=== PATIENT | male | born 1940 | race Caucasian/White ===

== ENCOUNTER 2018-09-26 14:00 | Emergency (ER) | payer MEDICARE, BC ==
--- NOTE | 2018-09-26 14:30 | ER Document Report ---
ED General - General Stated Complaint: POSSIBLE SYNCOPE Time Seen by Provider: 09/26/18 14:21 Primary Care Provider: CATIA MASON MD [Primary Care Provider] - Follow up as needed TRAVEL OUTSIDE OF THE [place] IN LAST 30 DAYS: No - HPI Patient complains to provider of: syncope Onset: Other - 78-year-old with hypertension as well as mild dementia that presents for evaluation of an episode today in which he stood up to go to the kitchen and became lightheaded and foggy then went to sit out of the chair he had a brief episode in which it seemed like he passed out according to his being lowered to the ground while in route after having called the ambulance it was noted that his blood pressure was around 70/40 systolic at which time he had an episode which he briefly did black out in the ambulance and then came back to all while being monitored without any obvious arrhythmias or other issues. Currently the patient denies any chest pain abdominal pain diarrhea constipation dysuria shortness of breath recent illnesses fevers or chills. His notes that he previously been a smoker and is not at this time has only been taking his normal medications which include lisinopril. - Related Data Allergies/Adverse Reactions: No Known Allergies Allergy (Unverified 10/06/15 15:25) Past Medical History - General Information source: Patient - Social History Smoking Status: Former Smoker Family History: Reviewed & Not Pertinent - Past Medical History Cardiac Medical History: Reports: Hx Hypercholesterolemia, Hx Hypertension Malignancy Medical History: Reports Hx Prostate Cancer Past Surgical History: Reports: Hx Abdominal Surgery - hernia repair Review of Systems - Review of Systems -: Yes All other systems reviewed and negative Physical Exam - Vital signs Vitals: BP 100/60 09/26/18 14:09 Interpretation: Normal - General General appearance: Appears well In distress: None - HEENT Head: Normocephalic, Atraumatic Eyes: Normal Pupils: PERRL - Respiratory Respiratory status: No respiratory distress Chest status: Nontender Breath sounds: Normal Chest palpation: Normal - Cardiovascular Rhythm: Regular Heart sounds: Normal auscultation Murmur: No - Abdominal Inspection: Normal Distension: No distension Bowel sounds: Normal Tenderness: Nontender Organomegaly: No organomegaly - Back Back: Normal, Nontender - Extremities General upper extremity: Normal inspection, Nontender, Normal color, Normal ROM, Normal temperature General lower extremity: Normal inspection, Nontender, Normal color, Normal ROM, Normal temperature, Normal weight bearing. No: Rosalind's sign - Neurological Neuro grossly intact: Yes Cognition: Normal Orientation: AAOx4 Anjel Coma Scale Eye Opening: Spontaneous Lopez Coma Scale Verbal: Oriented Lopez Coma Scale Motor: Obeys Commands Lopez Coma Scale Total: 15 Speech: Normal Motor strength normal: LUE, RUE, LLE, RLE Sensory: Normal - Psychological Associated symptoms: Normal affect, Normal mood - Skin Skin Temperature: Warm Skin Moisture: Dry Skin Color: Normal Course - Re-evaluation Re-evalutation: 78-year-old male presents for evaluation of syncope today while at home. It happened after he went from sitting to standing attempting to move from one place to the other. Currently he is symptom-free, his blood pressure improved with the administration of fluids while in route. Is been placed on rn cardiac will obtain enzymes x2 plan for monitoring chest x-ray reassessment. Also perform bedside ultrasound as this gentleman had hypotension in the setting of being a previous smoker and being in his 70s, his bedside ultrasound demonstrates a normal caliber aorta the widest dimension measuring 2.4 cm. Patient had 2- troponins, received 2 L of fluid, his BUN/creatinine ratio does demonstrate that he is likely somewhat dehydrated his notes that he does drink very little water he tends to drink only milk and soda. As he has been symptom-free for approximately 6 hours while in the emergency department and tolerating p.o. as well as having reassuring orthostatic vital signs and a trial of ambulation believe he is likely dehydrated as his underlying cause of syncope. The syncope is definitively difficult to workup and ascertain as to underlying cause and well not validated the Lockett Chinmay syncope rules do offer some useful guidelines in this instance this patient does not demonstrate symptoms to suggest anemia, a episode of heart failure or arrhythmia. I discussed with his son as well as at length their options including monitoring and the hospital and observation as well as transfer or discharge h ome after lengthy discussion we opted for outpatient management with discharge home and return precautions. - Vital Signs Vital signs: Temp Pulse Resp BP Pulse Ox 98.2 F 77 20 138/75 H 96 09/26/18 20:00 09/26/18 19:59 09/26/18 20:30 09/26/18 20:30 09/26/18 20:30 - Laboratory Result Diagrams: 09/26/18 15:30 09/26/18 14:30 Laboratory results interpreted by me: 09/26/18 09/26/18 09/26/18 14:30 15:30 16:30 WBC 12.6 H Seg Neutrophils % 86.2 H Lymphocytes % 6.5 L Absolute Neutrophils 10.9 H BUN 24 H Total Protein 6.0 L Urine Ketones TRACE H Discharge - Discharge Clinical Impression: Dehydration Syncope Qualifiers: Syncope type: unspecified Qualified Code(s): R55 - Syncope and collapse Condition: Good Disposition: HOME, SELF-CARE Instructions: Dehydration ([facility]), Syncopal Episode ([facility]) Additional Instructions: You were seen today in the emergency department for your fainting episode. He had evaluation including a physical exam a chest x-ray blood tests for damage to your heart as well as your kidney function liver function and an ultrasound of your belly. It looks like you may have been dehydrated today and that caused your blood pressure to be low making you pass out. Return in case of any chest pain, shortness of breath or other episodes of passing out. Referrals: CATIA MASON MD [Primary Care Provider] - Follow up as needed
--- NOTE | 2018-09-26 14:56 | RADIOLOGY REPORT (SQ) ---
EXAM DESCRIPTION: CHEST SINGLE VIEW COMPLETED DATE/TIME: 09/26/2018 2:42 pm REASON FOR STUDY: syncope COMPARISON: Two-view chest 10/06/2015 EXAM PARAMETERS: NUMBER OF VIEWS: One view. TECHNIQUE: Single frontal radiographic view of the chest acquired. RADIATION DOSE: NA LIMITATIONS: None. FINDINGS: LUNGS AND PLEURA: No opacities, masses or pneumothorax. No pleural effusion. MEDIASTINUM AND HILAR STRUCTURES: No masses. Contour normal. HEART AND VASCULAR STRUCTURES: Heart normal in size. Normal vasculature. BONES: No acute findings. HARDWARE: None in the chest. OTHER: No other significant finding. IMPRESSION: NO ACUTE RADIOGRAPHIC FINDING IN THE CHEST. TECHNICAL DOCUMENTATION: JOB ID: [id number] [employer]- All Rights Reserved Reading location - IP/workstation name: [email or web address]
[2018-09-26 15:04] LABS: ALANINE AMINOTRANSFERASE 25 U/L (21-72); ALBUMIN 3.6 g/dL (3.5-5.0); ALKALINE PHOSPHATASE 60 U/L (38-126); ANION GAP 8 (5-19); ASPARTATE AMINO TRANSFERASE 24 U/L (17-59); BILIRUBIN,DIRECT 0.3 mg/dL (0.0-0.4); BILIRUBIN,TOTAL 0.5 mg/dL (0.2-1.3); BLOOD UREA NITROGEN 24 mg/dL (7-20); CALCIUM 8.4 mg/dL (8.4-10.2); CARBON DIOXIDE 25 mmol/L (22-30); CHLORIDE 107 mmol/L (98-107); CREATINE KINASE 55 U/L (55-170); GLUCOSE 88 mg/dL (75-110); POTASSIUM 4.3 mmol/L (3.6-5.0); SODIUM 139.5 mmol/L (137-145)
[2018-09-26 15:40] LABS: ABSOLUTE BASOPHILS # (AUTO) 0.1 10^3/uL (0.0-0.2); ABSOLUTE EOSINOPHILS # (AUTO) 0.1 10^3/uL (0.0-0.6); ABSOLUTE LYMPHOCYTES (AUTO) 0.8 10^3/uL (0.5-4.7); ABSOLUTE MONOCYTES (AUTO) 0.8 10^3/uL (0.1-1.4); ABSOLUTE NEUT (AUTO) 10.9 10^3/uL (1.7-8.2); BASOPHILS % (AUTO) 0.5 % (0-2); EOSINOPHILS % (AUTO) 0.5 % (0-6); HEMATOCRIT 41.2 % (37.9-51.0); HEMOGLOBIN 13.9 g/dL (13.5-17.0); LYMPHOCYTES % (AUTO) 6.5 % (13-45); MEAN CORPUSCULAR HEMOGLOBIN 30.2 pg (27.0-33.4); MEAN CORPUSCULAR HGB CONC 33.8 g/dL (32.0-36.0); MEAN CORPUSCULAR VOLUME 89 fl (80-97); MONOCYTES % (AUTO) 6.3 % (3-13); PLATELET COUNT 155 10^3/uL (150-450); RED BLOOD COUNT 4.62 10^6/uL (4.35-5.55); RED CELL DISTRIBUTION WIDTH 13.6 % (11.5-14.0); SEGMENTED NEUTROPHILS % (AUTO) 86.2 % (42-78); TOTAL CELLS COUNTED % (AUTO) 100 %; WHITE BLOOD COUNT 12.6 10^3/uL (4.0-10.5)
[2018-09-26] MEDS ORDERED: NORMAL SALINE 1000 ML 1,000 ML IV ONE (15:45)
[2018-09-26 16:05] LABS: CREATINE KINASE MB 0.53 ng/mL (<4.55); NT PRO BNP 35 pg/mL (<450)
[2018-09-26 16:06] LABS: TROPONIN I < 0.012 ng/mL
[2018-09-26 16:51] LABS: APPEARANCE,URINE CLEAR; BILIRUBIN,URINE NEGATIVE (NEGATIVE); COLOR,URINE YELLOW; GLUCOSE, URINE NEGATIVE (NEGATIVE); KETONES,URINE TRACE mg/dL (NEGATIVE); LEUKOCYTE ESTERASE,URINE NEGATIVE (NEGATIVE); NITRITE,URINE NEGATIVE (NEGATIVE); PROTEIN,URINE NEGATIVE (NEGATIVE); URINE SPECIFIC GRAVITY 1.014; UROBILINOGEN,URINE NEGATIVE mg/dL (<2.0)
[2018-09-26 20:56] VITALS: BP 138/75
--- NOTE | 2018-09-26 21:38 | EKG REPORT ---
SEVERITY:- ABNORMAL ECG - SINUS RHYTHM RIGHT BUNDLE BRANCH BLOCK : Confirmed by: Janelle Lugo MD 26-Sep-2018 21:37:49
== END 2018-09-26 20:56 | disposition home or self-care (01) ==
LOC: ER 14:00
DX: E86.0 Dehydration (principal); I95.9 Hypotension, unspecified; R55 Syncope and collapse; I10 Essential (primary) hypertension; F03.90 Unspecified dementia, unspecified severity, without behavioral disturbance, psychotic disturbance, mood disturbance, and anxiety; Z79.899 Other long term (current) drug therapy; Z87.891 Personal history of nicotine dependence; Z85.46 Personal history of malignant neoplasm of prostate
CPT/HCPCS: 93005; 99285; 96360; 96361; 36415; 82553; 82550; 85025; 80053; 81001; 84484; 83880; 71045; 93010; J7030